=== PATIENT | male | born 1980 | race Two or more races ===

== ENCOUNTER 2018-06-06 02:19 | Emergency (ER) | payer SELFPAY ==
[2018-06-06 02:39] VITALS: BMI 23.7
[2018-06-06 02:44] VITALS: RESP 18; O2SAT 98
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
[2018-06-06] MEDS ORDERED: Piperacillin/Tazobact 3.375 GM in Sodium Chloride 0.9% 100 ML IV STA (04:57)
[2018-06-06] MEDS ORDERED: Piperacillin/Tazobact 3.375 gm Inj IVPB ONE (05:04)
[2018-06-06 07:05] VITALS: BP 122/86; PULSE 86; TEMP 98.6
--- NOTE | 2018-06-06 09:34 | CT ---
Date of service: 06/06/2018 PROCEDURE: CT HEAD WITHOUT CONTRAST. HISTORY: head injury COMPARISON: None available. TECHNIQUE: Axial computed tomography images were obtained through the head/brain without intravenous contrast. Radiation dose: Total exam DLP = 947.96 mGy-cm. This CT exam was performed using one or more of the following dose reduction techniques: Automated exposure control, adjustment of the mA and/or kV according to patient size, and/or use of iterative reconstruction technique. FINDINGS: HEMORRHAGE: No intracranial hemorrhage. BRAIN: No mass effect or edema. No atrophy or chronic microvascular ischemic changes. VENTRICLES: Unremarkable. No hydrocephalus. CALVARIUM: Unremarkable. PARANASAL SINUSES: Suspected fracture floor of left orbit. Soft tissue density/fluid in ethmoid sinuses and in left maxillary sinus. Likely related to acute trauma. Please see report of CT maxillofacial. MASTOID AIR CELLS: Unremarkable as visualized. No inflammatory changes. OTHER FINDINGS: None. IMPRESSION: Possible left orbital floor fracture. No intracranial hemorrhage. Otherwise unremarkable examination. The preliminary findings for this examination were reported by [facility] at 4:34 a.m. on 06/06/2018. There is concurrence of this report with the preliminary findings.
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
== END 2018-06-06 06:35 | disposition home or self-care (01) ==
LOC: H.ER 02:19
DX: S02.82XA Fracture of other specified skull and facial bones, left side, initial encounter for closed fracture (principal); S06.9X0A Unspecified intracranial injury without loss of consciousness, initial encounter; Y04.2XXA Assault by strike against or bumped into by another person, initial encounter; K50.90 Crohn's disease, unspecified, without complications
CPT/HCPCS: 70450; 70480; 87040; 96360; 99283; J2543